=== PATIENT | female | born 1945 | race Two or more races ===

== ENCOUNTER 2020-11-29 14:06 | Inpatient (IN) | payer OTHER ==
[~2020-11-29] VITALS: Ht 162.6 cm; Wt 41.3 kg
[2020-11-29] MEDS ORDERED: VASOTEC2.5 MG PO (14:27)
[2020-11-29] MEDS ORDERED: SINGULAIR10 MG PO (14:28)
[2020-12-04] MEDS ORDERED: VITAMIN B-12500 MC3 SL (14:59)
[2020-12-04] MEDS ORDERED: B-100 COMPLEX100 MG PO (14:59)
[2020-12-04] MEDS ORDERED: POLY119PG PO (15:00)
[2020-12-04] MEDS ORDERED: INTEGRA F CAPS1 EACH PO (15:01)
== END 2020-12-04 16:36 | disposition home or self-care (01) | DRG 375 ==
LOC: ER 14:06 → MEDI 11-30 11:10
PROVIDERS: ADMIT Internal Medicine; ATTEND Internal Medicine
PROC: 30233N1 Transfusion of Nonautologous Red Blood Cells into Peripheral Vein, Percutaneous Approach (ICD-10-PCS; 2020-11-30)
PROC: BW21ZZZ Computerized Tomography (CT Scan) of Abdomen and Pelvis (ICD-10-PCS; 2020-11-30)
PROC: 0DBP8ZX Excision of Rectum, Via Natural or Artificial Opening Endoscopic, Diagnostic (ICD-10-PCS; principal; 2020-12-02)
DX: C20 Malignant neoplasm of rectum (principal); K62.5 Hemorrhage of anus and rectum; C78.7 Secondary malignant neoplasm of liver and intrahepatic bile duct; C77.5 Secondary and unspecified malignant neoplasm of intrapelvic lymph nodes; E86.0 Dehydration; Z20.822 Contact with and (suspected) exposure to COVID-19; D50.0 Iron deficiency anemia secondary to blood loss (chronic); I10 Essential (primary) hypertension; Z91.5 Personal history of self-harm; K59.00 Constipation, unspecified